=== PATIENT | female | born 1965 | race African-American/Black ===

== ENCOUNTER → 2017-02-06 | Outpatient (CLI) | payer OTHER ==
[~2017-02-06] MED LIST: ALLER-FEX180 MG PO; HYDROCODON-ACE1 EACH PO; NORVASC PO; NORVASC10 MG PO; OMEPRAZOLE20 M1 PO; PERCOCET 10/3251 TAB PO; PHENERGAN PO; PHENERGAN SUPP25 MG PR; PRILOSEC PO; PROMETHAZINE HC25 MG PO; TRAMADOL HCL50 M1 PO; TYLENOL325 M1 PO; ULTRAM PO; VICODIN PO; ZESTORETIC 20/11 TAB PO; ZOFRAN PO; ZOFRANODT PO
--- NOTE | ~2017-02-06 | MY11 ---
[facility] A Service of [facility] RADIOLOGY TEXT RESULTS PATIENT: AIDAN ADRONO LOCATION: [facility] : 61 UNIT #: [id number] AGE: [address]: KIMBERLY GARCIA APRN SEX: F ORDER DR: [id number] [facility] [address] [place], [place] [address] [id number] O MR#: [id number] Acc #: [id number] NAME: AIDAN ADORNO : 1965 SEX: F STUDY DATE/TIME: 02/06/2017 9:00 UNIT: [facility] ROOM: STUDY DESCRIPTION: MY Mammogram Screening Dig Adan Attending Physician: Kimberly Garcia R.N. Ordering Physician: Kimberly Garcia R.N. Primary Care Physician: Kimberly Garcia R.N. MEDICAL IMAGING REPORT This report is preliminary unless electronic signature is present EXAM Bilateral digital screening mammogram with CAD HISTORY Routine screening. No current complaints. No family history of breast cancer. COMPARISON 03/31/2015, 06/14/2012, 02/16/2011 FINDINGS MLO and CC digital views of each breast were obtained. The exam was reviewed with an FDA-approved CAD device. Breasts are heterogenously dense. There is stable intramammary lymph node in the left breast laterally. There are benign calcifications bilaterally. There has been no change. IMPRESSION No change and no evidence of malignancy. Patients over the age of 40 are entered into a reminder system with target due date for the next mammogram. A result letter will also be sent to the patient. BIRADS: 2 Benign Finding Dictated by... Werner Suresh M.D. THIS IS AN ELECTRONICALLY VERIFIED REPORT Werner Suresh M.D. at 02/06/2017 1:22 PM GOOD/rickey [facility] A Service of [facility] RADIOLOGY TEXT RESULTS PATIENT: AIDAN ADORNO LOCATION: [facility] : 61 UNIT #: [id number] AGE: [address]: KIMBERLY GARCIA APRN SEX: F ORDER DR: TD: 02/06/2017 11:30 JOB #: [id number] MEDICAL IMAGING REPORT Page 1 of 1 COPY
== END | disposition home or self-care (01) ==
LOC: CWCC 08:41
DX: Z12.31 Encounter for screening mammogram for malignant neoplasm of breast (principal)
CPT/HCPCS: G0202